=== PATIENT | male | born 1975 | race African-American/Black ===

== ENCOUNTER → 2023-04-05 11:34 | Outpatient (BNVA) | payer BC, SELFPAY | PROVIDERS: PCP Internal Medicine; Visit Provider Nurse Practitioner Family ==

== ENCOUNTER 2023-07-06 12:27 | Day surgery (SDC) | payer BC, SELFPAY ==
--- NOTE | 2023-07-05 13:29 | P.CONAN_ITS ---
Documented by User: Shae Foss NP 07/05/23 13:30 HPI - Anesthesia Eval Consult details Narrative: 48yo M for Colonoscopy PMFSH Past Medical History Medical History (Updated 04/05/23 @ 11:52 by Judd Valdivia) Back pain with history of spinal surgery Family History Family History (Updated 04/02/23 @ 15:27 by Judd Valdivia) Mother FHx: cancer of ovary Surgical History Surgical History (Updated 04/05/23 @ 11:52 by Judd Valdivia) Status post correction of deviated nasal septum Hx of hernia repair History of ankle surgery Social History Social History (Updated 04/02/23 @ 15:25 by Judd Valdivia) Alcohol intake: current Alcohol intake frequency: a few times a month Alcohol type: beer Substance Use Type: Marijuana Advance Directives: No Advance Directives Information Provided: Yes Meds Allergies Allergy/AdvReac Type Severity Reaction Status Date / Time peanut Allergy Severe Swelling Verified 04/05/23 11:40 throat, resp, difficulty , hives Home Medications Medication Instructions Recorded Confirmed Last Taken Type acetaminophen 325 mg tablet 650 mg PO Q4H PRN 04/02/23 Unknown History carvedilol 25 mg tablet 25 mg PO BID 04/02/23 Unknown History epinephrine 0.3 mg/0.3 mL 0.3 mg IM Q4H PRN 04/02/23 Unknown History injection, auto-injector (EpiPen 2-Perez) fluticasone propionate 50 1 spray intranasal BID 04/02/23 Unknown History mcg/actuation nasal spray,suspension furosemide 40 mg tablet 40 mg PO DAILY 04/02/23 Unknown History ipratropium 0.5 mg-albuterol 3 mg 3 ml inhalation Q6-8H PRN 04/02/23 Unknown History (2.5 mg base)/3 mL nebulization soln melatonin 3 mg tablet 3 mg PO BEDTIME PRN 04/02/23 Unknown History meloxicam 15 mg tablet 15 mg PO DAILY 04/02/23 Unknown History nystatin 100,000 unit/gram topical 1 appl topical BID 04/02/23 Unknown History powder sodium chloride 0.65 % nasal drops 2 drp intranasal Q4H PRN 04/02/23 Unknown History ([place]) Exam Exam Date and Time: July 05, 2023 132 Assessment and Plan Assessment Anesthesia Assessment: Chart Reviewed Documented by User: Salo Alan MD 07/06/23 12:49 PMFSH Past Medical History Medical History (Updated 04/05/23 @ 11:52 by Judd Valdivia) Back pain with history of spinal surgery Family History Family History (Updated 04/02/23 @ 15:27 by Judd Valdivia) Mother FHx: cancer of ovary Family history of problems with anesthesia: No Surgical History Surgical History (Updated 04/05/23 @ 11:52 by Judd Valdivia) Status post correction of deviated nasal septum Hx of hernia repair History of ankle surgery History of Problems with Anesthesia: No Social History Social History (Updated 04/02/23 @ 15:25 by Judd Valdivia) Alcohol intake: current Alcohol intake frequency: a few times a month Alcohol type: beer Substance Use Type: Marijuana Advance Directives: No Advance Directives Information Provided: Yes Meds Allergies Allergy/AdvReac Type Severity Reaction Status Date / Time peanut Allergy Severe Swelling Verified 04/05/23 11:40 throat, resp, difficulty , hives Home Medications Medication Instructions Recorded Confirmed Last Taken Type acetaminophen 325 mg tablet 650 mg PO Q4H PRN 04/02/23 Unknown History carvedilol 25 mg tablet 25 mg PO BID 04/02/23 Unknown History epinephrine 0.3 mg/0.3 mL 0.3 mg IM Q4H PRN 04/02/23 Unknown History injection, auto-injector (EpiPen 2-Perez) fluticasone propionate 50 1 spray intranasal BID 04/02/23 Unknown History mcg/actuation nasal spray,suspension furosemide 40 mg tablet 40 mg PO DAILY 04/02/23 Unknown History ipratropium 0.5 mg-albuterol 3 mg 3 ml inhalation Q6-8H PRN 04/02/23 Unknown History (2.5 mg base)/3 mL nebulization soln melatonin 3 mg tablet 3 mg PO BEDTIME PRN 04/02/23 Unknown History meloxicam 15 mg tablet 15 mg PO DAILY 04/02/23 Unknown History nystatin 100,000 unit/gram topical 1 appl topical BID 04/02/23 Unknown History powder sodium chloride 0.65 % nasal drops 2 drp intranasal Q4H PRN 04/02/23 Unknown History ([place]) Exam Airway Mallampati Class: II TM Dist: >3cm Neck ROM: Full Assessment and Plan Assessment Anesthesia Assessment: Anesthesia Plan Discussed Final Anesthetic Review Family History of Problems with Anesthesia: No History of Problems with Anesthesia: No NPO: Yes ASA Class: III Final Preanesthetic Review: No Changes in Pt Med Stat, Meds/Allgs Chart Reviewed, Consent Obtained/Reviewed and Anes Risks/Benef Reviewed Patient Risk: Intermediate Procedure Risk: Low Anesthetic Plan Anesthetic Plan: MAC: Disposition: Standard PACU
[2023-07-06 12:51] VITALS: BMI 38.4
[2023-07-06 12:55] VITALS: BP 169/99; PULSE 66; RESP 18; TEMP 36.8; O2SAT 100
--- NOTE | 2023-07-06 13:03 | MHC.SHP ---
Pre-Procedural Eval Section A Date of Service: 07/06/23 Section B Chief Complaint: screening Relevant Family History (Specify if Yes): No Relevant Social History: Other (specify) (THC) Present Medications: see Short Stay Collaborative assessment Medical History: Significant History (Back pain with history of spinal surgery) History of Previous Operations: Relevant previous surgery/procedure and date(s) (History of ankle surgery Hx of hernia repair Status post correction of deviated nasal septum) Allergies: Allergies Allergy/AdvReac Type Severity Reaction Status Date / Time peanut Allergy Severe Swelling Verified 04/05/23 11:40 throat, resp, difficulty , hives Review of Systems Sugical H&P ROS: Negative: Constitution, Cardiovascular, Respiratory, Neurological, Psychiatric, Hem-Onc, Allergic/Immunologic, Gastrointestinal, Genitourinary, Musculoskeletal, Integumentary, Endocrine and Eyes/Ears/Nose/Throat Exam Surgical H&P Exam: Normal: HEENT, Normal: Heart, Normal: Lungs, Normal: Extremities, Normal: Abdomen, Normal: Skin and Normal: Neurological Plan Diagnosis/Plan: Unchanged I have reviewed the history and physical and performed a pertinent physical examination on my patient. No changes have occurred unless specified. Time Spent With Patient Time: Total time managing care of this patient today ____ minutes.
--- NOTE | 2023-07-06 13:09 | W.PM.OPN ---
Operative Note Operative Note Date of Service: 07/06/23 Narrative: Operative Information Procedure Description: Colonoscopy Indication: screening Anesthesia: MAC COLONOSCOPY Instrument: Olympus variable stiffness ADULT scope 190L Colonoscopy Monitoring: Vital signs and clinical assessment, continuous EKG monitoring, Pulse oximetry, Carbon Dioxide monitoring and blood pressure monitoring were done throughout the procedure. Colon withdrawal time was 16 minutes. Procedure: The patient was placed in the left lateral decubitis position and pre-procedure medications were administered. After a digital rectal examination of the ano-rectum, the video colonoscope was inserted into the rectum and advanced through the colon to the cecum/TI. The colonoscope was slowly withdrawn in a retrograde panoramic fashion and the colon mucosa was carefully examined including a retroflexed view of the rectum. Findings and interventions are described below. Procedure Difficulty: moderate due to prep Findings: Terminal Ileum-not intubated Cecum:normal Ascending Colon: normal Transverse Colon -normal Descending Colon: 6-7 mm sessile polyp removed with cold snare Sigmoid Colon: normal Rectum: Retroflexion with medium sized internal hemorrhoids, grade I1-2 Anorectum - normal Colon preparation: [place] Bowel Preparation Scale Right colon; 1-2 Transverse colon: 2 Left colon; 1-2 (0 = Unprepared colon segment with mucosa not seen due to solid stool that cannot be cleared. 1 = Portion of mucosa of the colon segment seen, but other areas of the colon segment not well seen due to staining, residual stool and/or opaque liquid. 2 = Minor amount of residual staining, small fragments of stool and/or opaque liquid, but mucosa of colon segment seen well. 3 = Entire mucosa of colon segment seen well with no residual staining, small fragments of stool or opaque liquid) Impression and Post Procedure Diagnosis: internal hemorrhoids polyp Plan: High fiber diet leaflet Avoid straining at stool, epsom salts and sitz bath, anusol supps or cream Repeat Colonoscopy in 1- year due to areas of fair to poor prep or earlier if clinically indicated Above findings were reviewed with the patient and relevant handouts were provided if indicated.
[2023-07-06] MEDS: Lactated Ringers 1,000 ML 100 ML IVCONT (13:21)
[2023-07-06 14:11] VITALS: BP 128/74; PULSE 74; RESP 20; TEMP 36.6; O2SAT 100
[2023-07-06 14:26] VITALS: BP 158/84; PULSE 50; RESP 16; TEMP 36.6; O2SAT 100
== END 2023-07-06 15:45 | disposition home or self-care (01) ==
PROVIDERS: PCP Internal Medicine; Visit Provider Internal Medicine Gastroenterology
PROC: 0DJD8ZZ Inspection of Lower Intestinal Tract, Via Natural or Artificial Opening Endoscopic (ICD-10-PCS; CPT 45378; principal; 2023-07-06 14:20)
DX: Z12.11 Encounter for screening for malignant neoplasm of colon (principal); K63.5 Polyp of colon; K64.1 Second degree hemorrhoids; Z79.51 Long term (current) use of inhaled steroids; Z79.899 Other long term (current) drug therapy; Z91.010 Allergy to peanuts; F12.90 Cannabis use, unspecified, uncomplicated; Z98.890 Other specified postprocedural states
CPT/HCPCS: 45385; 88305

== ENCOUNTER → 2023-07-06 12:27 | Outpatient (BNV) | payer BC, SELFPAY | PROVIDERS: PCP Internal Medicine; Visit Provider Internal Medicine Gastroenterology | DX: Z12.11 Encounter for screening for malignant neoplasm of colon (principal); K64.1 Second degree hemorrhoids; K63.5 Polyp of colon; Z91.199 Patient's noncompliance with other medical treatment and regimen due to unspecified reason | CPT/HCPCS: 45385 ==

== ENCOUNTER 2023-07-20 12:43 | Outpatient (AMB) | payer BC, SELFPAY ==
--- NOTE | 2023-07-20 12:48 | A.OFFVIS_ITS ---
Intake Vital Signs 07/20/23 12:50 Height 5 ft 9 in Weight 264 lb 8.875 oz BMI 39.1 BP 169/94 H Blood Pressure Location Lt brachial Position Sitting Pulse 69 Intake Visit Reasons: S/p colon salcido Intake Note: Wilder presents in the office as a follow up colonoscopy. CC: He states he has had drainage in the buttocks region. He said it is yellowish and not stool. He states sometimes it feels like it is a little sticky and not sure where it is coming from. His stomach at night has been making noises and the past 2 days his stools have been loose. Allergies peanut Allergy (Severe, Verified 07/20/23 12:54) Swelling throat, resp, difficulty , hives HPI S/p colon salcido HPI Details LAST VISIT Screen for colon cancer Patient denies any GI, cardiac or respiratory symptoms.? Denies any issues with anesthesia in the past.? History of sleep apnea currently not using CPAP machine. No history infectious diseases in the past or present.? Not on any anticoagulation therapy.? No family or personal history of colon cancer or polyps.? Patient denies melena, hematochezia, unintentional weight loss or ribbon like stools.? Discussed at length the pre-procedure,? prep, diet & medications as well as what to expect prior, during and after the procedure.?? Stressed the importance of good bowel prep. ?Recommended the use of Vaseline or Calmoseptine OTC & baby wipes with bowel movements to promote comfort.? ?Patient verbalizes understanding and agrees to plan of care.? He was given the opportunity to ask questions and all questions answered.? We will see him after the procedure.? Constipation Will start patient MiraLax and Dulcolax tablets. Patient was also encouraged to increase fluid intake and activity to promote better bowel motility. Patient will call the office in week or 2 if he will continue to be constipated despite taking it. We will order Linzess then. I will see him after the procedure, he is agreeable to this plan verbalizes understanding of instructions. He was given the opportunity to ask questions and all questions answered. ? Thank you for allowing me to participate in his care Plan Medications New bisacodyl (Dulcolax (bisacodyl)) 10 mg (2 x 5 mg) PO BEDTIME 180 tabs 4RF polyethylene glycol 3350 (Miralax) As directed by gastroenterology department at [facility] 238 grams PO ONCE 238 grams 0RF Z12.11 - Encounter for screening for malignant neoplasm of colon polyethylene glycol 3350 (Miralax) 17 grams PO DAILY 510 grams 2RF COLONOSCOPY: Findings: Terminal Ileum-not intubated Cecum:normal Ascending Colon: normal Transverse Colon -normal Descending Colon: 6-7 mm sessile polyp removed with cold snare Sigmoid Colon: normal Rectum: Retroflexion with medium sized internal hemorrhoids, grade I1-2 Anorectum - normal Colon preparation: [place] Bowel Preparation Scale Right colon; 1-2 Transverse colon: 2 Left colon; 1-2 (0 = Unprepared colon segment with mucos a not seen due to solid stool that cannot be cleared. 1 = Portion of mucosa of the colon segme nt seen, but other areas of the colon segment not well seen due to staining, residual stool and/or opaque liquid. 2 = Minor amount of residual staining, s mall fragments of stool and/or opaque liquid, but mucosa of colon segment seen well. 3 = Entire mucosa of colon segment seen well with no residual staining, small fragments of stool or opaque liquid) Impression and Post Procedure Diagnosis: internal hemorrhoids polyp Plan: High fiber diet leaflet Avoid straining at stool, epsom salts and sitz bath, anusol supps or cream Repeat Colonoscopy in 1- year due to areas of fair to poor prep or earlier if clinically indicated PATHOLOGY RESULTS Diagnosis Colon, descending, polyp: No tissue present for evaluation; fecal material only TODAY'S VISIT Patient is here today for follow-up and to discuss colonoscopy results. Patient denies any ill effects from the prep, anesthesia or procedure itself. Patient had no polyp. Patient had suboptimal prep and will need to repeat colonoscopy in 1 year, sooner if clinically necessary. Patient reports that he has been having fecal incontinence at night. Patient reports that it looks like liquid, yellow without any feces. Patient reports that this sometimes happens to him during the day. Patient does not any rectal pain or discomfort. Patient states that he stopped taking Linzess for a while as it was causing too much diarrhea although he was happy that he was able to move his bowels. Patient denies any abdominal pain or discomfort. Denies any dyspepsia, dysphagia or odynophagia. Denies any melena, hematochezia, unintentional weight loss or ribbon like to the patient does admit to be constipated. Moves his bowels only every few days. Patient reports that his bowels are hard. Occasional blood after bowel movement when wiping. Pacing [facility] Medical History Back pain with history of spinal surgery Surgical History Hx of colonoscopy Status post correction of deviated nasal septum Hx of hernia repair History of ankle surgery Family History Mother FHx: cancer of ovary Social History Alcohol intake: current Alcohol intake frequency: holidays/special occasions only Alcohol type: beer Patient Tobacco Use Status: Former Tobacco user Quit Date: 3 years Substance Use Type: Marijuana Review of Systems Const Denies weight gain and Denies weight loss ENT Reports no additional complaints, Denies dysphagia and Denies odynophagia Card Reports no additional complaints Resp Reports no additional complaints GI Denies abdominal pain, Denies belching, Denies melena, Denies bloating, Denies change in bowel habits, Reports constipation, Denies dysphagia, Denies excessive flatus, Denies dyspepsia, Denies heartburn, Denies diarrhea, Reports loose stools, Denies nausea, Denies odynophagia and Denies vomiting Reports no additional complaints Musc Reports no additional complaints Neuro Reports no additional complaints Psych Reports no additional complaints Endo Reports no additional complaints Physical Exam Vital Signs: Last Vital Signs Pulse 69 07/20/23 12:50 BP 169/94 H 07/20/23 12:50 BMI result Body Mass Index 39.1 Const General: healthy appearing, no acute distress and well developed Nutritional Appearance: obese Orientation/consciousness: patient oriented x3 HEENT Head: Yes normal to inspection, Yes normocephalic and Yes atraumatic Face and sinus: Yes normal facial exam Mouth: Normal oral and palatal mucosa present Throat: Yes posterior oropharynx normal, Yes tonsils normal and Yes uvula midline Eyes General: appearance normal, both eyes and all related structures Neck Neck: Yes normal visual inspection, Yes full ROM and Yes trachea midline Thyroid: Thyroid normal Resp Effort & Inspection: normal respiratory effort, able to speak in complete sentences, no tracheal deviation and symmetric chest movement Auscultation: clear to auscultation bilaterally Cardio Rate: regular rate Heart sounds: S1 normal heart sound present and S2 normal heart sound present GI Inspection: Yes normal to inspection, No distended and Yes obesity Palpation (GI): Soft to palpation, not firm, nontender and No hepatosplenomegaly present Auscultation: normal bowel sounds General: Yes no CVA tenderness Back/Spine/Pelvis Back: no CVA tenderness Skin General skin exam: elasticity normal, turgor normal and dry skin Neuro General: patient oriented x3 Psych Appearance: grossly normal Mental Status: mental status grossly normal Assessment & Plan Assessment & Plan (1) Constipation: Code(s): K59.00 - Constipation, unspecified Qualifiers: Constipation type: chronic idiopathic constipation Qualified Code(s): K59.04 - Chronic idiopathic constipation (2) Rectal leakage: Code(s): R15.9 - Full incontinence of feces Qualifiers: Fecal incontinence type: incomplete defecation Qualified Code(s): R15.0 - Incomplete defecation (3) Status post colonoscopy: Code(s): Z98.890 - Other specified postprocedural states Plan Patient was encouraged to increase fluid intake. Patient had normal rectal exam. No abscess, internal hemorrhoids found no rectal bleed. No drainage. Most likely patient has rectal leakage due to constipation. Patient was encouraged to increase fiber intake. He will start taking fiber supplement to help him bulk his stools and will take Colace at bedtime. Patient can use Proctosol to help with hemorrhoids. Patient was also encouraged to do Sitz baths. Patient was also encouraged to increase fluid intake and activity to promote better bowel motility. I will see patient in 6 months, sooner on as needed basis. He is agreeable to this plan and verbalizes understanding of instructions. He was given the opportunity to ask questions and all questions answered. Thank you for allowing me to participate in his care Medications: New docusate sodium 100 mg PO BEDTIME 90 caps 3RF K59.00 - Constipation, unspecified methylcellulose (laxative) (Citrucel) take it with full glass of water 500 mg PO DAILY 90 tabs 2RF K59.00 - Constipation, unspecified hydrocortisone 2.5% (Proctosol HC) 1 appl RI BID-QID PRN 30 grams 2RF hemorrhoids K64.9 - Unspecified hemorrhoids Discontinued linaclotide (Linzess) Discontinued Reason: Doctor's Order 145 mcg PO DAILY 30 caps 2RF Coding Level of Care Code Est Pt Level 3 (63491) Diagnoses Chronic idiopathic constipation K59.04 Constipation type: chronic idiopathic constipation Incomplete defecation R15.0 Fecal incontinence type: incomplete defecation Status post colonoscopy Z98.890 Time Spent (min) 30 Comment 20 minutes spent with patient and additional 10 minutes spent reviewing his records
[2023-07-20 12:50] VITALS: BP 169/94; PULSE 69; BMI 39.1
== END 2023-07-20 13:41 | disposition home or self-care (01) ==
PROVIDERS: PCP Internal Medicine; Visit Provider Nurse Practitioner Family
DX: K59.04 Chronic idiopathic constipation (principal)
CPT/HCPCS: 99214

== ENCOUNTER → 2023-07-20 12:43 | Outpatient (BNVA) | payer BC, SELFPAY | PROVIDERS: PCP Internal Medicine; Visit Provider Nurse Practitioner Family ==

== ENCOUNTER 2023-08-31 13:12 | Outpatient (AMB) | payer BC, SELFPAY ==
--- NOTE | 2023-08-31 13:14 | MHC.OFFVIS ---
Intake Vital Signs 08/31/23 13:16 Height 5 ft 9 in Weight 274 lb BMI 40.5 BP 127/73 Blood Pressure Location Rt brachial Position Sitting Pulse 75 Intake Visit Reasons: 6 week follow up Intake Note: Wilder presents in 6 weeks follow up of constipation. CC: Patient states he has been taking the dulcolax, docusate sodium, and colace and has been able to have Bms but sometimes he still has to strain a little bit. Denies other GI symptoms or concerns today. Allergies peanut Allergy (Severe, Verified 08/31/23 13:24) Swelling throat, resp, difficulty , hives No Known Drug Allergies Allergy (Unknown, Verified 08/31/23 13:24) none HPI 6 week follow up HPI Details LAST VISIT: Constipation Rectal leakage Status post colonoscopy Plan Patient was encouraged to increase fluid intake. Patient had normal rectal exam. No abscess, internal hemorrhoids found no rectal bleed. No drainage. Most likely patient has rectal leakage due to constipation. Patient was encouraged to increase fiber intake. He will start taking fiber supplement to help him bulk his stools and will take Colace at bedtime. Patient can use Proctosol to help with hemorrhoids. Patient was also encouraged to do Sitz baths. Patient was also encouraged to increase fluid intake and activity to promote better bowel motility. I will see patient in 6 months, sooner on as needed basis. He is agreeable to this plan and verbalizes understanding of instructions. He was given the opportunity to ask questions and all questions answered. ? Thank you for allowing me to participate in his care Medications New docusate sodium 100 mg PO BEDTIME 90 caps 3RF K59.00 methylcellulose (laxative) (Citrucel) take it with full glass of water 500 mg PO DAILY 90 tabs 2RF K59.00 hydrocortisone 2.5% (Proctosol HC) 1 appl NM BID-QID PRN 30 grams 2RF hemorrhoids K64.9 Discontinued linaclotide (Linzess) Discontinued Reason: Doctor's Order 145 mcg PO DAILY 30 caps 2RF TODAY'S VISIT Patient is here today for follow-up. Patient reports that he is taking bisacodyl tablets in the morning with Colace and Citrucel. Patient states that he also takes Colace in the evening. Patient states that he moves his bowels better now, however he continues to occasionally feel like he needs to push to have a bowel movement. Patient reports that he no longer has stool leakage. Feels like Citrucel is helping. Patient denies any melena, hematochezia. Denies any dyspepsia, dysphagia or odynophagia. Patient denies any other GI concerning symptoms. He uses Proctosol for his hemorrhoids and denies any rectal pain or discomfort. FORMERLY [facility], 1928–1983 Medical History Back pain with history of spinal surgery Surgical History Hx of colonoscopy Status post correction of deviated nasal septum Hx of hernia repair History of ankle surgery Family History Mother FHx: cancer of ovary Social History Alcohol intake: current Alcohol intake frequency: holidays/special occasions only Alcohol type: beer Patient Tobacco Use Status: Former Tobacco user Quit Date: 3 years Substance Use Type: Marijuana Review of Systems Const Denies weight gain and Denies weight loss ENT Reports no additional complaints, Denies dysphagia and Denies odynophagia Card Reports no additional complaints Resp Reports no additional complaints GI Denies abdominal pain, Denies belching, Denies melena, Denies bloating, Denies change in bowel habits, Reports constipation, Denies dysphagia, Denies excessive flatus, Denies dyspepsia, Denies heartburn, Denies diarrhea, Denies loose stools, Denies nausea, Denies odynophagia and Denies vomiting Reports no additional complaints Musc Reports no additional complaints Neuro Reports no additional complaints Psych Reports no additional complaints Endo Reports no additional complaints Physical Exam Vital Signs: Last Vital Signs Pulse 75 08/31/23 13:16 BP 127/73 08/31/23 13:16 BMI result Body Mass Index 40.5 Const General: healthy appearing and no acute distress Nutritional Appearance: obese Orientation/consciousness: patient oriented x3 HEENT Head: Yes normal to inspection, Yes normocephalic and Yes atraumatic Face and sinus: Yes normal facial exam Mouth: Normal oral and palatal mucosa present Throat: Yes posterior oropharynx normal, Yes tonsils normal and Yes uvula midline Eyes General: appearance normal, both eyes and all related structures Neck Neck: Yes normal visual inspection, Yes full ROM and Yes trachea midline Thyroid: Thyroid normal Resp Effort & Inspection: normal respiratory effort, able to speak in complete sentences, no tracheal deviation and symmetric chest movement Auscultation: clear to auscultation bilaterally Cardio Rate: regular rate GI Inspection: Yes normal to inspection, No distended and Yes obesity Palpation (GI): Soft to palpation, not firm, nontender and No hepatosplenomegaly present Auscultation: normal bowel sounds General: Yes no CVA tenderness Back/Spine/Pelvis Back: no CVA tenderness Skin General skin exam: elasticity normal, turgor normal and dry skin Neuro General: patient oriented x3 Psych Appearance: grossly normal Mental Status: mental status grossly normal Affect: normal affect Assessment & Plan Assessment & Plan (1) Constipation: Code(s): K59.00 - Constipation, unspecified Qualifiers: Constipation type: slow transit constipation Qualified Code(s): K59.01 - Slow transit constipation (2) Postprandial abdominal bloating: Code(s): R14.0 - Abdominal distension (gaseous) Plan Patient can continue Citrucel in the morning after breakfast. Patient will take Colace, 2 capsules and bisacodyl tablets 2 tablets in the evening. Patient was also encouraged to increase fluid intake and activity to promote better bowel motility. I will see patient in 6 months, sooner on as needed basis. Patient is agreeable to this plan and verbalizes understanding of instructions. He was given the opportunity to ask questions and all questions answered. Thank you for allowing me to participate in his care Medications: Refilled methylcellulose (laxative) (Citrucel) take it with full glass of water 500 mg PO DAILY 90 tabs 2RF K59.00 - Constipation, unspecified hydrocortisone 2.5% (Proctosol HC) 1 appl NM BID-QID PRN 30 grams 2RF hemorrhoids K64.9 - Unspecified hemorrhoids bisacodyl (Dulcolax (bisacodyl)) 10 mg (2 x 5 mg) PO BEDTIME 180 tabs 4RF docusate sodium 100 mg PO BEDTIME 90 caps 3RF K59.00 - Constipation, unspecified Coding Level of Care Code Est Pt Level 3 (29900) Diagnoses Slow transit constipation K59.01 Constipation type: slow transit constipation Postprandial abdominal bloating R14.0 Time Spent (min) 25 Comment 15 minutes spent with patient and additional 10 minutes spent reviewing his records
[2023-08-31 13:16] VITALS: BP 127/73; PULSE 75; BMI 40.5
== END 2023-08-31 13:44 | disposition home or self-care (01) ==
PROVIDERS: PCP Internal Medicine; Visit Provider Nurse Practitioner Family
DX: K59.01 Slow transit constipation (principal); R14.0 Abdominal distension (gaseous)
CPT/HCPCS: 99213

== ENCOUNTER → 2023-08-31 13:12 | Outpatient (BNVA) | payer BC, SELFPAY | PROVIDERS: PCP Internal Medicine; Visit Provider Nurse Practitioner Family ==

== ENCOUNTER 2024-06-06 13:23 | Outpatient (AMB) | payer BC, SELFPAY ==
[2024-06-06 13:49] VITALS: BP 146/92; PULSE 70; O2SAT 98; BMI 45.5
--- NOTE | 2024-06-06 13:49 | A.OFFVIS_ITS ---
Vital Signs 06/06/24 13:49 Height 5 ft 9 in Weight 308 lb 3.3 oz BMI 45.5 BP 146/92 H Blood Pressure Location Rt brachial Position Sitting Pulse 70 Pulse Source Pulse Oximeter Pulse Oximetry (%) 98 Oxygen Delivery Method Room Air Intake Visit Reasons: pt r/s from 04/28 Intake Note: Wilder presents in office today for a scheduled FUV. CC: Pt reports that they have remained stable since their last visit, however; they have not seen any significant improvements since then. Pt reports that they have been taking the prescribed medications, however; they have made some adjust ments in dose in order to account for frequent diarrhea. Pt has solved the complications with the diarrhea, however; they find that they are experiencing some intermittent constipation as a result. Pt reports he had been in detox within the last 6 mos for alcoholism. Perpetual Inventory Clerk Required: No Allergies peanut Allergy (Severe, Verified 06/06/24 13:50) Swelling throat, resp, difficulty , hives No Known Drug Allergies Allergy (Unknown, Verified 06/06/24 13:50) none HPI HPI pt r/s from 04/28: Details: LAST VISIT: Constipation Postprandial abdominal bloating Plan Patient can continue Citrucel in the morning after breakfast. Patient will take Colace, 2 capsules and bisacodyl tablets 2 tablets in the evening. Patient was also encouraged to increase fluid intake and activity to promote better bowel motility. I will see patient in 6 months, sooner on as needed basis. Patient is agreeable to this plan and verbalizes understanding of instructions. He was given the opportunity to ask questions and all questions answered. ? Thank you for allowing me to participate in his care Medications Refilled methylcellulose (laxative) (Citrucel) take it with full glass of water 500 mg PO DAILY 90 tabs 2RF K59.00 hydrocortisone 2.5% (Proctosol HC) 1 appl SC BID-QID PRN 30 grams 2RF hemorrhoids K64.9 bisacodyl (Dulcolax (bisacodyl)) 10 mg (2 x 5 mg) PO BEDTIME 180 tabs 4RF docusate sodium 100 mg PO BEDTIME 90 caps 3RF K59.00 TODAY'S VISIT Patient is here today for follow-up. Patient reports that he has been doing well. His symptoms are mostly controlled, however occasionally patient will have loose stools. Patient was trying to adjust his medication and currently he is constipated. Patient reports that he is in a day program and he reports that he is given to eat what is available throughout the day. Patient denies any melena, hematochezia, unintentional weight loss or ribbon like stools. Patient denies any dyspepsia, dysphagia or odynophagia. Patient had suboptimal prep on last colonoscopy and is due to go for colonoscopy now. Patient missed previous appointments as he was in detox program. His appointments were rescheduled for today's appointment. Patient denies any issues with anesthesia last colonoscopy. History of sleep apnea, not using CPAP machine. Patient is not on any PFSH Medical History Back pain with history of spinal surgery Surgical History Hx of colonoscopy Status post correction of deviated nasal septum Hx of hernia repair History of ankle surgery Family History Mother FHx: cancer of ovary Social History Alcohol intake: current Alcohol intake frequency: holidays/special occasions only Alcohol type: beer Patient Tobacco Use Status: Former Tobacco user Substance Use Type: Marijuana Review of Systems Const Denies weight gain and Denies weight loss ENT Reports no additional complaints, Denies dysphagia and Denies odynophagia Card Reports no additional complaints Resp Reports no additional complaints GI Denies abdominal pain, Denies belching, Denies melena, Denies bloating, Denies change in bowel habits, Reports constipation, Denies dysphagia, Denies excessive flatus, Denies dyspepsia, Denies heartburn, Denies diarrhea, Denies loose stools, Denies nausea, Denies odynophagia and Denies vomiting Reports no additional complaints Musc Reports no additional complaints Neuro Reports no additional complaints Psych Reports no additional complaints Endo Reports no additional complaints Physical Exam Vital Signs: Last Vital Signs Pulse 70 06/06/24 13:49 BP 146/92 H 06/06/24 13:49 Pulse Ox 98 06/06/24 13:49 Oxygen Delivery Method Room Air 06/06/24 13:49 BMI result Body Mass Index 45.5 Const General: healthy appearing and no acute distress Nutritional Appearance: obese Orientation/consciousness: patient oriented x3 Resp Effort & Inspection: normal respiratory effort, able to speak in complete sentences, no tracheal deviation and symmetric chest movement Auscultation: clear to auscultation bilaterally Cardio Rate: regular rate GI Inspection: Yes normal to inspection, No distended and Yes obesity Palpation (GI): Soft to palpation, not firm, nontender and No hepatosplenomegaly present Auscultation: normal bowel sounds General: Yes no CVA tenderness Back/Spine/Pelvis Back: no CVA tenderness Skin General skin exam: elasticity normal, turgor normal and dry skin Neuro General: patient oriented x3 Psych Appearance: grossly normal Mental Status: mental status grossly normal Assessment & Plan Assessment & Plan (1) Constipation: Code(s): K59.00 - Constipation, unspecified Qualifiers: Constipation type: slow transit constipation Qualified Code(s): K59.01 - Slow transit constipation (2) Postprandial abdominal bloating: Code(s): R14.0 - Abdominal distension (gaseous) (3) Screen for colon cancer: Code(s): Z12.11 - Encounter for screening for malignant neoplasm of colon Plan Suboptimal prep last procedure. Patient missed couple appointments as he was in the program. No change in his health. The importance of good bowel prep discussed with patient. Patient will need to take Dulcolax tablets daily dixie cially before going for procedure. What to expect before during and after procedure discussed with patient. Stressed the importance of good bowel prep day before procedure. No issues with anesthesia in the past. Patient does have a history of sleep apnea. Patient gained weight since last visit 30 lb or so. Patient is not on any anticoagulation medication. I will see patient after the procedure, sooner on as needed basis. He is agreeable to this plan and verbalizes understanding of instructions. He was given the opportunity to ask questions and all questions answered. Thank you for allowing me to participate in his care Coding Level of Care Code Est Pt Level 3 (90199) Diagnoses Slow transit constipation K59.01 Constipation type: slow transit constipation Postprandial abdominal bloating R14.0 Screen for colon cancer Z12.11 Time Spent (min) 30 Comment 20 minutes spent with patient and additional 10 minutes spent reviewing his records
== END 2024-06-06 14:52 | disposition home or self-care (01) ==
PROVIDERS: PCP Internal Medicine; Visit Provider Nurse Practitioner Family
DX: K59.01 Slow transit constipation (principal); R14.0 Abdominal distension (gaseous); Z12.11 Encounter for screening for malignant neoplasm of colon
CPT/HCPCS: 99213

== ENCOUNTER → 2024-06-06 13:23 | Outpatient (BNVA) | payer BC, SELFPAY | PROVIDERS: PCP Internal Medicine; Visit Provider Nurse Practitioner Family ==